=== PATIENT | female | born 1935 | race Caucasian/White ===

== ENCOUNTER 2024-01-16 09:09 | Emergency (ER) | payer OTHER ==
[~2024-01-16] VITALS: Ht 152.4 cm; Wt 52.3 kg
[~2024-01-16 09:09] MED LIST: AMLO-258 PO; ASPI-1450 PO; CARV25 PO; HYDR25TA84 PO; LOSA-382 PO; SIMV-345 PO
[2024-01-16 09:26] VITALS: TEMP 97.7
[2024-01-16 12:00] VITALS: BP 157/72; PULSE 77; RESP 18
== END 2024-01-16 13:18 | disposition home or self-care (01) ==
LOC: EMS 09:11
DX: S80.01XA Contusion of right knee, initial encounter (principal); E78.00 Pure hypercholesterolemia, unspecified; I11.9 Hypertensive heart disease without heart failure; Z90.710 Acquired absence of both cervix and uterus; Z98.890 Other specified postprocedural states; W19.XXXA Unspecified fall, initial encounter; Y93.89 Activity, other specified; Y92.89 Other specified places as the place of occurrence of the external cause; Y99.8 Other external cause status
CPT/HCPCS: 72040; 73521; 93005; 99284; 73562-TC; Z7502